=== PATIENT | female | born 1970 | race African-American/Black ===

== ENCOUNTER 2016-08-31 20:17 | Emergency (ER) | payer OTHER ==
[2016-08-31 20:46] VITALS: BP 141/75; PULSE 94; TEMP 98.7; BMI 30.7
--- NOTE | 2016-08-31 21:53 | PDOC ---
History of Present Illness - General Chief Complaint: Choking Sensation Stated Complaint: HARD TIME SWALLOWING Time Seen by Provider: 08/31/16 21:39 History Source: Patient Exam Limitations: No Limitations - History of Present Illness Initial Comments: 08/31/16 21:48 45yo Female patient w/ no significant past medical history presents to ED c/o throat discomfort. Patient states while eating rice, she experienced a difficult time swallowing food, and her throat began to hurt. She looked in mirror with flash light and noticed a piece of tissue hanging from her Uvula. Patient states she never seen this before and attempt to remove it with her toothbrush. She denies CP, Abd pain, n/v/d, fever, diff breathing, or any other complaints at this time. Timing/Duration: unsure Severity: mild Modifying Factors: worse with: cold therapy, eating, immobilization, medication , movement, rest, other Associated Symptoms: denies: denies symptoms, chest pain, cough, diaphoresis, fever/chills, headaches, loss of appetite, malaise, nausea/vomiting, rash, seizure, shortness of breath, syncope, weakness, other Aspirin Received prior to arrival: No: no aspirin today, unknown, 81 mg x 1, 81 mg x 2, 81 mg x 3, 81 mg x 4, 325 mg x 1, provided at home, provided by EMS, provided by [facility] Contraindications(Core Measure): No: Allergy, Other, Active Blding w/i 24 hrs., Plavix, Receiving Warfarin Past History - Travel Traveled outside of the country in the last 30 days: No Close contact w/someone who was outside of country & ill: No - Past Medical History Allergies/Adverse Reactions: Allergies Allergy/AdvReac Type Severity Reaction Status Date / Time No Known Allergies Allergy Verified 08/31/16 20:43 Home Medications: Ambulatory Orders Naproxen [EC-Naprosyn] 375 mg PO BID PRN #12 tablet.ec 02/18/16 Oxycodone HCl/Acetaminophen [Percocet 5-325 mg Tablet] 1 - 2 tab PO Q6H PRN #6 tab MDD 4 02/18/16 Other medical history: denies - Immunization History Immunization Up to Date: Yes - Psycho/Social/Smoking Cessation Hx Suicidal Ideation: No Smoking History: Never smoked Have you smoked in the past 12 months: No Hx Alcohol Use: No Drug/Substance Use Hx: No Substance Use Type: None Review of Systems - Review of Systems Able to Perform ROS?: Yes Is the patient limited Slovak proficient: No Constitutional: No: Chills, Fever HEENTM: Yes: Throat Pain, Difficulty Swallowing. No: Throat Swelling, Mouth Pain, Dental Problems, Mouth Swelling Respiratory: No: Cough, Shortness of Breath, Stridor, Wheezing Cardiac (ROS): No: Chest Pain, Edema, Lightheadedness, Palpitations, Chest Tightness ABD/GI: No: Constipated, Diarrhea, Nausea, Poor Appetite, Poor Fluid Intake, Vomiting, Abdominal cramping : No: Dysuria Musculoskeletal: No: Back Pain Integumentary: No: Bruising, Dryness, Erythema, Rash Neurological: No: Headache, Numbness, Paresthesia, Seizure, Ataxia, Dizziness All Other Systems: Reviewed and Negative *Physical Exam - Vital Signs Last Vital Signs Temp Pulse Resp BP Pulse Ox 98.7 F 94 H 20 141/75 99 08/31/16 20:43 08/31/16 20:43 08/31/16 20:43 08/31/16 20:43 08/31/16 20:43 - Physical Exam General Appearance: Yes: Nourished, Appropriately Dressed. No: Apparent Distress, Mild Distress, Moderate Distress, Severe Distress HEENT: positive: EOMI, LAMONT, Normal Voice, Symmetrical, TMs Normal, Pharynx Normal, Other (Elongated Uvula with contused tissue attached. No bleeding, or throat swelling noted.). negative: Normal ENT Inspection, Pharyngeal Erythema, Tonsillar Exudate, Tonsillar Erythema, Nasal Congestion, Rhinorrhea, Sinus Tenderness, TM Bulging, TM Dull, TM Erythema Neck: positive: Trachea midline, Supple. negative: Stridor, Lymphadenopathy (R) , Lymphadenopathy (L), Tender lateral, Tender midline Respiratory/Chest: positive: Lungs Clear, Normal Breath Sounds. negative: Chest Tender, Respiratory Distress, Accessory Muscle Use, Labored Respiration, Rapid RR Cardiovascular: positive: Regular Rhythm, Regular Rate Musculoskeletal: positive: Normal Inspection Extremity: positive: Normal Capillary Refill, Normal Inspection, Normal Range of Motion Integumentary: positive: Normal Color, Dry, Warm Neurologic: positive: assurance senior manager insurance II-XII NML intact, Fully Oriented, Alert, Normal Mood/ Affect, Normal Response, Motor Strength 5/5 *DC/Admit/Observation/Transfer Diagnosis at time of Disposition: Uvulitis - Discharge Dispostion Disposition: HOME Condition at time of disposition: Good Admit: No - Referrals Referrals: STAFF,NOT ON [Primary Care Provider] - Claudio Zavaleta MD [Staff Physician] - - Patient Instructions Printed Discharge Instructions: Oropharyngeal Dysphagia Additional Instructions: FOLLOW UP WITH DR. ZAVALETA TOMORROW MORNING. CALL TO SCHEDULE APPOINTMENT EARLY POSSIBLE. DO NOT ATTEMPT TO REMOVE TISSUE THIS MAYBE IMPORTANT FOR THE ENT SPECIALIST TO BIOPSY/TEST. IF YOUR SYMPTOMS WORSEN, RETURN FOR FURTHER EVALUATION. Print Language: TELUGU
--- NOTE | 2016-08-31 21:54 | PDOC ---
*Physical Exam - Vital Signs Last Vital Signs Temp Pulse Resp BP Pulse Ox 98.7 F 94 H 20 141/75 99 08/31/16 20:43 08/31/16 20:43 08/31/16 20:43 08/31/16 20:43 08/31/16 20:43 Medical Decision Making - Medical Decision Making 08/31/16 21:54 agree with care from DRAMATIC TEACHER Khoi *DC/Admit/Observation/Transfer Diagnosis at time of Disposition: Uvulitis - Referrals Referrals: STAFF,NOT ON [Primary Care Provider] - Claudio Zavaleta MD [Staff Physician] - - Patient Instructions Printed Discharge Instructions: Oropharyngeal Dysphagia Additional Instructions: FOLLOW UP WITH DR. ZAVALETA TOMORROW MORNING. CALL TO SCHEDULE APPOINTMENT EARLY POSSIBLE. DO NOT ATTEMPT TO REMOVE TISSUE THIS MAYBE IMPORTANT FOR THE ENT SPECIALIST TO BIOPSY/TEST. IF YOUR SYMPTOMS WORSEN, RETURN FOR FURTHER EVALUATION. Print Language: HEBREW
== END 2016-08-31 22:09 | disposition home or self-care (01) ==
LOC: JER 20:17
DX: K12.2 Cellulitis and abscess of mouth (principal)
CPT/HCPCS: 99282-25